=== PATIENT | female | born 1990 | race Two or more races ===

== ENCOUNTER 2020-08-02 06:40 | Day surgery (SDC) | payer OTHER ==
[~2020-08-02 06:40] MED LIST: ZYRTEC10 MG PO
== END 2020-08-02 13:50 | disposition home or self-care (01) ==
LOC: CIR.AMB 06:40
PROVIDERS: ATTEND Surgery
DX: D24.1 Benign neoplasm of right breast (principal); Z20.828 Contact with and (suspected) exposure to other viral communicable diseases